=== PATIENT | male | born 1955 | race African-American/Black ===

== ENCOUNTER 2019-07-21 11:33 | Emergency (ER) | payer OTHER, MEDICARE ==
[~2019-07-21] VITALS: Ht 162.6 cm; Wt 82.0 kg
[2019-07-21] MEDS ORDERED: SODIUM CHLORIDE 0.9% 1,000 ML IV ONE (13:01)
[2019-07-21 13:39] LABS: CLARITY URINE CLOUDY (CLEAR); COLOR URINE ORANGE (YELLOW); KETONES URINE NEGATIVE (NEGATIVE); LEUKOCYTE ESTERASE URINE 1+ (NEGATIVE); NITRITE URINE NEGATIVE (NEGATIVE); OCCULT BLOOD URINE 3+ (NEGATIVE); PH URINE 5.5 (4.5-8.0); PROTEIN URINE 2+ (NEGATIVE); SPECIFIC GRAVITY URINE 1.018 (1.005-1.030); UROBILINOGEN URINE 0.2 E.U./dL (0.2-1.0)
[2019-07-21 13:56] LABS: BASOPHILS % 0.9 % (0.0-2.0); EOSINOPHILS % 2.3 % (0.0-5.0); HEMATOCRIT. 43.7 % (42.0-52.0); LYMPHOCYTES % 42.8 % (20.0-50.0); MEAN CORPUSCULAR HEMOGLOBIN 31.1 pg (28.0-32.0); MEAN CORPUSCULAR VOLUME 90.5 fL (80.0-94.0); MONOCYTES % 8.8 % (2.0-8.0); NEUTROPHILS % 45.2 % (40.0-76.0); PLATELET 242 x1000/uL (130-400); RED BLOOD CELL COUNT 4.84 mill/uL (4.7-6.1)
[2019-07-21 14:03] LABS: PARTIAL THROMBOPLASTIN TIME 30.8 sec (23.4-31.0); PROTHROMBIN TIME 10.2 sec (9.6-11.0)
[2019-07-21 14:05] LABS: CHLORIDE 112 mEq/L (98-107)
[2019-07-21] MEDS ORDERED: CLONIDINE 0.2MG TABLET PO ONE (14:30)
[2019-07-21] MEDS ORDERED: CEFTRIAXONE 1 G PREMIX 50 ML IV ONE (14:30)
[2019-07-21] MEDS ORDERED: HYDRALAZINE 20MG/ML VIAL IV ONE (16:15)
[2019-07-21 20:20] VITALS: BP 185/105
== END 2019-07-21 21:05 | disposition home or self-care (01) ==
LOC: ER 11:33
DX: R31.9 Hematuria, unspecified (principal); N30.90 Cystitis, unspecified without hematuria; I10 Essential (primary) hypertension
CPT/HCPCS: 36415; 80053; 81003; 83690; 85025; 85610; 85730; 86850; 86900; 86901; 87086; 96374; 96375; 99283; J0360; J0696; J7030; Z7610